=== PATIENT | female | born 1955 | race Caucasian/White ===

== ENCOUNTER 2019-08-08 17:21 | Emergency (ER) | payer MEDICARE, OTHER ==
[~2019-08-08] VITALS: Ht 154.9 cm; Wt 49.9 kg
[~2019-08-08 17:21] MED LIST: ADVAIR 250-501 EACH IH; ALBUTEROL INHAL17 GM IH; CLARITIN10 MG PO; FLONASE 0.05%50 MCG NS; K-DUR 20 MEQ T20 MEQ PO; KEFLEX500 MG PO; MEDROL DOSPAK21 TA1 PO; NEXIUM40 MG PO; NORCO 5-325 TA1 EACH PO; PROAIR HFA8.5 GM IH; PROCTOFOAM-HC F10 GM RC; XANAX XR1 MG PO; ZANTAC 150MG T150 MG; ZPAK PO
[2019-08-08] MEDS ORDERED: TORADOL 10 MG T10 MG PO (18:02)
[2019-08-08] MEDS ORDERED: NORFLEX100 MG PO (18:02)
[2019-08-08 18:31] VITALS: BP 120/74
== END 2019-08-08 18:32 | disposition home or self-care (01) ==
LOC: M.ERS 17:21
DX: G44.209 Tension-type headache, unspecified, not intractable (principal); M62.838 Other muscle spasm; K21.9 Gastro-esophageal reflux disease without esophagitis; G43.909 Migraine, unspecified, not intractable, without status migrainosus; F41.9 Anxiety disorder, unspecified; F17.210 Nicotine dependence, cigarettes, uncomplicated; Z90.49 Acquired absence of other specified parts of digestive tract; Z98.890 Other specified postprocedural states; Z88.0 Allergy status to penicillin; Z88.6 Allergy status to analgesic agent

== ENCOUNTER 2019-09-04 00:11 | Emergency (ER) | payer MEDICARE, OTHER ==
[~2019-09-04] VITALS: Ht 154.9 cm; Wt 64.0 kg
[~2019-09-04 00:11] MED LIST changes: +NORFLEX100 MG PO; +TORADOL 10 MG T10 MG PO
[2019-09-04 00:47] LABS: ABSOLUTE BASOPHILS 0.1 thou/uL (0.0-0.2); ABSOLUTE EOSINOPHILS 0.3 thou/uL (0.0-0.7); ABSOLUTE LYMPHOCYTES 3.6 thou/uL (0.8-5.3); ABSOLUTE NEUTROPHILS 3.9 thou/uL (1.6-8.1); EOSINOPHILS 3.9 %; HEMOGLOBIN 11.2 gm/dL (12.0-15.0); MCH 21.2 pg (26.0-34.0); MCV 66.3 fL (80.0-100.0); MONOCYTES 10.9 %; MPV 9.3 fl. (7.2-11.1); NUCLEATED RBCS 0 /100WBC; PLATELET COUNT* 268 thou/uL (150-400); POLYS 44.2 %; RBC 5.28 mil/uL (4.20-5.00); RDW-CV 15.2 % (10.5-14.5); WBC 8.9 thou/uL (4.0-11.0)
[2019-09-04 00:57] LABS: CALCIUM 8.5 mg/dL (8.5-10.1); CREATININE 0.8 mg/dL (0.6-1.3); POTASSIUM 3.1 mmol/L (3.5-5.1)
[2019-09-04 01:07] LABS: ALBUMIN 3.4 g/dL (3.4-5.0); MAGNESIUM 1.1 mg/dL (1.8-2.4); TOTAL BILIRUBIN 0.4 mg/dL (<0.1-1.0); TOTAL PROTEIN 6.7 g/dL (6.4-8.2)
[2019-09-04 01:23] LABS: URINE BILIRUBIN NEGATIVE (Negative); URINE BLOOD NEGATIVE (Negative); URINE CLARITY CLEAR; URINE COLOR YELLOW; URINE GLUCOSE-RANDOM NEGATIVE (Negative); URINE KETONES NEGATIVE (Negative); URINE LEUKOCYTES-REFLEX NEGATIVE (Negative); URINE NITRITE-REFLEX NEGATIVE (Negative); URINE PROTEIN NEGATIVE (Negative); URINE SPECIFIC GRAVITY <= 1.005 (1.005-1.030); URINE UROBILINOGEN 0.2 E.U./dl (0.2-1.0)
[2019-09-04] MEDS ORDERED: FLEXERIL PO (01:57)
[2019-09-04] MEDS ORDERED: INDOMETHACIN 2525 MG PO (01:57)
[2019-09-04 02:42] VITALS: BP 145/70
[2019-09-04 04:52] LABS: ANISOCYTOSIS 1+; HYPOCHROMASIA 2+; MICROCYTES 1+
--- NOTE | 2019-09-04 11:24 | EKG ---
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 : 1955 Requested By: Betsy Almendarez Order Number: [id number] MD: Roel Silverio Measurements Intervals [place] Rate: 78 P: 61 OH: 198 QRS: 32 QRSD: 91 T: 31 QT: 368 QTc: 420 Interpretive Statements Sinus rhythm Abnormal R-wave progression, early transition Compared to ECG 09/17/2012 13:54:15 No significant changes Electronically Signed On 09-04-2019 11:23:08 CDT by Roel Silverio [email or web address] <ELECTRONICALLY SIGNED> By: Roel Silverio MD, [facility] 09/04/19 1123 0016 0016 Roel Silverio MD, [facility] /EPI
== END 2019-09-04 02:42 | disposition home or self-care (01) ==
LOC: M.ERS 00:11
PROVIDERS: Emergency Medicine
DX: M25.512 Pain in left shoulder (principal); E87.6 Hypokalemia; E83.42 Hypomagnesemia; G43.909 Migraine, unspecified, not intractable, without status migrainosus; K21.9 Gastro-esophageal reflux disease without esophagitis; F17.210 Nicotine dependence, cigarettes, uncomplicated; Z88.6 Allergy status to analgesic agent; Z88.5 Allergy status to narcotic agent; Z88.0 Allergy status to penicillin; Z79.899 Other long term (current) drug therapy; Z86.73 Personal history of transient ischemic attack (TIA), and cerebral infarction without residual deficits; Z98.890 Other specified postprocedural states; Z90.49 Acquired absence of other specified parts of digestive tract

== ENCOUNTER 2019-09-17 14:57 | Emergency (ER) | payer MEDICARE, OTHER ==
[~2019-09-17] VITALS: Ht 154.9 cm; Wt 52.2 kg
[~2019-09-17 14:57] MED LIST changes: +FLEXERIL PO; +INDOMETHACIN 2525 MG PO
[2019-09-17] MEDS ORDERED: MAGNESIUM400 MG PO (15:12)
[2019-09-17 16:15] LABS: CALCIUM 9.4 mg/dL (8.5-10.1); CREATININE 0.9 mg/dL (0.6-1.3); MAGNESIUM 1.8 mg/dL (1.8-2.4); POTASSIUM 3.7 mmol/L (3.5-5.1)
[2019-09-17 16:30] VITALS: BP 144/63
== END 2019-09-17 16:31 | disposition home or self-care (01) ==
LOC: M.ERS 14:57
PROVIDERS: Emergency Medicine Emergency Medical Services
DX: J32.9 Chronic sinusitis, unspecified (principal); G43.909 Migraine, unspecified, not intractable, without status migrainosus; F41.9 Anxiety disorder, unspecified; K21.9 Gastro-esophageal reflux disease without esophagitis; E87.6 Hypokalemia; F17.210 Nicotine dependence, cigarettes, uncomplicated; Z90.49 Acquired absence of other specified parts of digestive tract; Z88.0 Allergy status to penicillin; Z88.5 Allergy status to narcotic agent; Z88.6 Allergy status to analgesic agent

== ENCOUNTER 2020-02-25 01:05 | Emergency (ER) | payer MEDICARE, OTHER ==
[~2020-02-25] VITALS: Ht 154.9 cm; Wt 65.8 kg
[~2020-02-25 01:05] MED LIST changes: +MAGNESIUM400 MG PO
[2020-02-25 02:14] LABS: URINE BILIRUBIN NEGATIVE (Negative); URINE BLOOD NEGATIVE (Negative); URINE CLARITY CLEAR; URINE COLOR YELLOW; URINE GLUCOSE-RANDOM NEGATIVE (Negative); URINE KETONES NEGATIVE (Negative); URINE LEUKOCYTES-REFLEX NEGATIVE (Negative); URINE NITRITE-REFLEX NEGATIVE (Negative); URINE PROTEIN NEGATIVE (Negative); URINE SPECIFIC GRAVITY <= 1.005 (1.005-1.030); URINE UROBILINOGEN 0.2 E.U./dl (0.2-1.0)
[2020-02-25 02:16] LABS: ABSOLUTE BASOPHILS 0.1 thou/uL (0.0-0.2); ABSOLUTE EOSINOPHILS 0.1 thou/uL (0.0-0.7); ABSOLUTE LYMPHOCYTES 2.7 thou/uL (0.8-5.3); ABSOLUTE MONOCYTES 0.6 thou/uL (0.0-1.2); ABSOLUTE NEUTROPHILS 4.7 thou/uL (1.6-8.1); BASOPHILS 1.2 %; EOSINOPHILS 1.8 %; HEMATOCRIT 36.5 % (37.0-47.0); HEMOGLOBIN 11.5 gm/dL (12.0-15.0); LYMPHOCYTES 32.6 %; MCH 20.7 pg (26.0-34.0); MCHC 31.4 g/dL (28.0-37.0); MCV 65.9 fL (80.0-100.0); MONOCYTES 7.7 %; MPV 9.1 fl. (7.2-11.1); NUCLEATED RBCS 0 /100WBC; PLATELET COUNT* 309 thou/uL (150-400); POLYS 56.7 %; RBC 5.55 mil/uL (4.20-5.00); RDW-CV 15.9 % (10.5-14.5); WBC 8.3 thou/uL (4.0-11.0)
[2020-02-25 02:20] LABS: CALCIUM 9.1 mg/dL (8.5-10.1); CREATININE 0.8 mg/dL (0.6-1.3); POTASSIUM 3.4 mmol/L (3.5-5.1)
[2020-02-25 02:22] LABS: PROTIME 9.8 Seconds (9.20-11.50)
[2020-02-25 02:24] LABS: ALBUMIN 3.8 g/dL (3.4-5.0); MAGNESIUM 1.3 mg/dL (1.8-2.4); TOTAL BILIRUBIN 0.4 mg/dL (<0.1-1.0); TOTAL PROTEIN 7.3 g/dL (6.4-8.2)
[2020-02-25 02:28] LABS: INR < 0.9
[2020-02-25 05:02] VITALS: BP 132/78
[2020-02-25 06:01] LABS: HYPOCHROMASIA 2+; MICROCYTES 3+; PLATELET ESTIMATE ADEQUATE
--- NOTE | 2020-02-25 12:49 | EKG ---
[place] [address] ELECTROCARDIOGRAM REPORT Name: MARY GALE Room: [facility]#: [id number] Admission: 02/25/20 Attend Phys: Discharge: 02/25/20 Date of : 51 Date of Service: 02/25/20 0155 Report #: [id number] THIS REPORT FOR: //name// [facility] ED Test Date: 2020-02-25 Test Time: 01:55:24 Pat Name: MARY GALE Department: Room: Gender: Home Health Specialist: [place] : 1955 Requested By: Betsy Almendarez Order Number: [id number] MD: Simone Cordoba Measurements Intervals [place] Rate: 96 P: 69 VT: 220 QRS: 32 QRSD: 86 T: 52 QT: 339 QTc: 429 Interpretive Statements Sinus rhythm Prolonged VT interval Probable left atrial enlargement Borderline T abnormalities, anterior leads Compared to ECG 09/04/2019 00:16:54 First degree AV block now present T-wave abnormality now present Electronically Signed On 02-25-2020 12:49:47 SALES INTERN by Simone Cordoba [email or web address] <ELECTRONICALLY SIGNED> By: Simone Cordoab MD, FACC 02/25/20 1249 0155 0155 Simone Cordoba MD, FAC /EPI
== END 2020-02-25 05:03 | disposition home or self-care (01) ==
LOC: M.ERS 01:05
PROVIDERS: Emergency Medicine
DX: K21.9 Gastro-esophageal reflux disease without esophagitis (principal); F41.9 Anxiety disorder, unspecified; E83.42 Hypomagnesemia; Z20.828 Contact with and (suspected) exposure to other viral communicable diseases; G43.909 Migraine, unspecified, not intractable, without status migrainosus; F17.210 Nicotine dependence, cigarettes, uncomplicated; Z88.6 Allergy status to analgesic agent; Z88.0 Allergy status to penicillin; Z88.5 Allergy status to narcotic agent; Z90.49 Acquired absence of other specified parts of digestive tract; Z98.890 Other specified postprocedural states

== ENCOUNTER 2020-05-28 10:39 | Emergency (ER) | payer MEDICARE, OTHER ==
[~2020-05-28] VITALS: Ht 154.9 cm; Wt 52.2 kg
[2020-05-28] MEDS ORDERED: MAGNESIUM250 M1 PO (10:51)
[2020-05-28 11:13] LABS: URINE BILIRUBIN NEGATIVE (Negative); URINE BLOOD TRACE (Negative); URINE CLARITY CLEAR; URINE COLOR PALE YELLOW; URINE GLUCOSE-RANDOM NEGATIVE (Negative); URINE KETONES NEGATIVE (Negative); URINE LEUKOCYTES-REFLEX NEGATIVE (Negative); URINE NITRITE-REFLEX NEGATIVE (Negative); URINE PROTEIN NEGATIVE (Negative); URINE SPECIFIC GRAVITY <= 1.005 (1.005-1.030); URINE UROBILINOGEN 0.2 E.U./dl (0.2-1.0)
[2020-05-28 11:23] LABS: ABSOLUTE BASOPHILS 0.1 thou/uL (0.0-0.2); ABSOLUTE EOSINOPHILS 0.1 thou/uL (0.0-0.7); ABSOLUTE LYMPHOCYTES 2.3 thou/uL (0.8-5.3); ABSOLUTE MONOCYTES 0.7 thou/uL (0.0-1.2); ABSOLUTE NEUTROPHILS 5.7 thou/uL (1.6-8.1); BASOPHILS 1.2 %; HEMATOCRIT 39.2 % (37.0-47.0); HEMOGLOBIN 12.3 gm/dL (12.0-15.0); LYMPHOCYTES 25.5 %; MCH 20.3 pg (26.0-34.0); MCHC 31.5 g/dL (28.0-37.0); MCV 64.5 fL (80.0-100.0); MONOCYTES 7.8 %; MPV 8.9 fl. (7.2-11.1); NUCLEATED RBCS 0 /100WBC; PLATELET COUNT* 304 thou/uL (150-400); POLYS 64.5 %; RBC 6.07 mil/uL (4.20-5.00); RDW-CV 15.8 % (10.5-14.5); WBC 8.9 thou/uL (4.0-11.0)
[2020-05-28 11:32] LABS: CALCIUM 9.2 mg/dL (8.5-10.1); CREATININE 0.8 mg/dL (0.6-1.3); POTASSIUM 3.9 mmol/L (3.5-5.1)
[2020-05-28 11:36] LABS: ALBUMIN 4.1 g/dL (3.4-5.0); MAGNESIUM 1.7 mg/dL (1.8-2.4); TOTAL BILIRUBIN 0.6 mg/dL (<0.1-1.0); TOTAL PROTEIN 7.6 g/dL (6.4-8.2)
[2020-05-28 12:21] VITALS: BP 149/64
[2020-05-28 12:29] LABS: PLATELET ESTIMATE ADEQUATE
[2020-05-28 12:30] LABS: HYPOCHROMASIA 2+; MICROCYTES 2+
[2020-05-28 12:32] LABS: TARGET CELLS Occasional
[2020-05-28 12:40] LABS: ANISOCYTOSIS 2+
[2020-05-28 12:44] LABS: OVALOCYTES 1+; POIKILOCYTOSIS 2+
== END 2020-05-28 12:21 | disposition home or self-care (01) ==
LOC: M.ERS 10:39
PROVIDERS: Nurse Practitioner Family
DX: S29.012A Strain of muscle and tendon of back wall of thorax, initial encounter (principal); R19.7 Diarrhea, unspecified; E83.42 Hypomagnesemia; G43.909 Migraine, unspecified, not intractable, without status migrainosus; K58.9 Irritable bowel syndrome, unspecified; Z90.49 Acquired absence of other specified parts of digestive tract; Z98.890 Other specified postprocedural states; X50.9XXA Other and unspecified overexertion or strenuous movements or postures, initial encounter; Y93.89 Activity, other specified; Y92.89 Other specified places as the place of occurrence of the external cause; Y99.8 Other external cause status

== ENCOUNTER 2020-11-26 19:23 | Emergency (ER) | payer MEDICARE, OTHER ==
[~2020-11-26] VITALS: Ht 154.9 cm; Wt 52.2 kg
[~2020-11-26 19:23] MED LIST changes: +MAGNESIUM250 M1 PO
[2020-11-26 22:29] LABS: CALCIUM 8.7 mg/dL (8.5-10.1); CREATININE 0.7 mg/dL (0.6-1.3); POTASSIUM 3.4 mmol/L (3.5-5.1)
[2020-11-26 22:33] LABS: ALBUMIN 3.8 g/dL (3.4-5.0); MAGNESIUM 1.4 mg/dL (1.8-2.4); TOTAL BILIRUBIN 0.3 mg/dL (<0.1-1.0); TOTAL PROTEIN 7.1 g/dL (6.4-8.2)
[2020-11-26 23:06] VITALS: BP 141/70
== END 2020-11-26 23:07 | disposition home or self-care (01) ==
LOC: M.ERS 19:23
PROVIDERS: Personal Emergency Response Attendant
DX: E83.42 Hypomagnesemia (principal); Z20.822 Contact with and (suspected) exposure to COVID-19; J02.9 Acute pharyngitis, unspecified; R09.81 Nasal congestion; J34.89 Other specified disorders of nose and nasal sinuses; R19.7 Diarrhea, unspecified; R53.1 Weakness; G43.909 Migraine, unspecified, not intractable, without status migrainosus; K21.9 Gastro-esophageal reflux disease without esophagitis; F41.9 Anxiety disorder, unspecified; F17.210 Nicotine dependence, cigarettes, uncomplicated; Z90.49 Acquired absence of other specified parts of digestive tract; Z98.890 Other specified postprocedural states; Z90.721 Acquired absence of ovaries, unilateral; Z79.899 Other long term (current) drug therapy; Z88.6 Allergy status to analgesic agent; Z88.5 Allergy status to narcotic agent; Z88.0 Allergy status to penicillin

== ENCOUNTER 2021-03-09 14:40 | Emergency (ER) | payer MEDICARE, OTHER ==
[~2021-03-09] VITALS: Ht 154.9 cm; Wt 52.2 kg
[2021-03-09] MEDS ORDERED: SERTRALINE HCL100 MG PO (15:11)
[2021-03-09 16:23] LABS: CALCIUM 8.6 mg/dL (8.5-10.1); CREATININE 0.9 mg/dL (0.6-1.3); MAGNESIUM 1.7 mg/dL (1.8-2.4); POTASSIUM 3.2 mmol/L (3.5-5.1)
[2021-03-09 16:40] VITALS: BP 143/73
== END 2021-03-09 16:41 | disposition home or self-care (01) ==
LOC: M.ERS 14:40
PROVIDERS: Emergency Medicine Emergency Medical Services
DX: E87.6 Hypokalemia (principal); G43.909 Migraine, unspecified, not intractable, without status migrainosus; K21.9 Gastro-esophageal reflux disease without esophagitis; F41.9 Anxiety disorder, unspecified; F17.210 Nicotine dependence, cigarettes, uncomplicated; Z90.49 Acquired absence of other specified parts of digestive tract; Z98.890 Other specified postprocedural states; Z90.721 Acquired absence of ovaries, unilateral; Z79.899 Other long term (current) drug therapy; Z88.6 Allergy status to analgesic agent; Z88.5 Allergy status to narcotic agent; Z88.0 Allergy status to penicillin; Z88.8 Allergy status to other drugs, medicaments and biological substances

== ENCOUNTER 2021-04-06 18:19 | Emergency (ER) | payer MEDICARE, OTHER ==
[~2021-04-06] VITALS: Ht 154.9 cm; Wt 54.4 kg
[~2021-04-06 18:19] MED LIST changes: +SERTRALINE HCL100 MG PO
[2021-04-06] MEDS ORDERED: PHENERGAN 25 MG25 MG PO (20:53)
[2021-04-06 21:47] VITALS: BP 128/54
--- NOTE | 2021-04-07 10:35 | EKG ---
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 Officer: KATI : 1955 Requested By: Kaleb England Order Number: [id number] MD: Roel Silverio Measurements Intervals [place] Rate: 106 P: 67 OH: 210 QRS: 50 QRSD: 81 T: 48 QT: 322 QTc: 428 Interpretive Statements Sinus tachycardia Borderline prolonged OH interval Borderline T abnormalities, anterior leads Baseline wander in lead(s) II,III,aVF Compared to ECG 02/25/2020 01:55:24 Sinus rhythm no longer present T-wave abnormality still present Electronically Signed On 04-07-2021 10:35:09 [facility] by Roel Silverio [email or web address] <ELECTRONICALLY SIGNED> By: Roel Silverio MD, FAC 04/07/21 1035 182 1823 Roel Silverio MD, FAC /EPI
[2021-04-07] MEDS ORDERED: TESSALON PERLE100 MG PO (15:47)
[2021-04-07] MEDS ORDERED: VENTOLIN HFA 1818 GM INH (15:47)
[2021-04-07] MEDS ORDERED: FLEXERIL PO (15:47)
[2021-04-07] MEDS ORDERED: ZOFRAN ODT4 MG PO (16:16)
== END 2021-04-06 21:48 | disposition home or self-care (01) ==
LOC: M.ERS 18:19
DX: R51.9 Headache, unspecified (principal); Z20.822 Contact with and (suspected) exposure to COVID-19; K21.9 Gastro-esophageal reflux disease without esophagitis; F41.9 Anxiety disorder, unspecified; F17.210 Nicotine dependence, cigarettes, uncomplicated; Z90.89 Acquired absence of other organs; Z90.49 Acquired absence of other specified parts of digestive tract; Z79.899 Other long term (current) drug therapy; Z88.5 Allergy status to narcotic agent; Z88.6 Allergy status to analgesic agent; Z88.0 Allergy status to penicillin

== ENCOUNTER 2021-04-07 10:36 | Emergency (ER) | payer MEDICARE, OTHER ==
[~2021-04-07] VITALS: Ht 154.9 cm; Wt 54.4 kg
[~2021-04-07 10:36] MED LIST changes: +PHENERGAN 25 MG25 MG PO
[2021-04-07 14:44] LABS: ABSOLUTE BASOPHILS 0.1 thou/uL (0.0-0.2); ABSOLUTE LYMPHOCYTES 1.6 thou/uL (0.8-5.3); ABSOLUTE MONOCYTES 0.8 thou/uL (0.0-1.2); ABSOLUTE NEUTROPHILS 2.9 thou/uL (1.6-8.1); EOSINOPHILS 0.2 %; HEMATOCRIT 37.7 % (37.0-47.0); HEMOGLOBIN 11.5 gm/dL (12.0-15.0); LYMPHOCYTES 29.9 %; MCH 19.6 pg (26.0-34.0); MCHC 30.6 g/dL (28.0-37.0); MCV 64.1 fL (80.0-100.0); MONOCYTES 14.2 %; NUCLEATED RBCS 0 /100WBC; PLATELET COUNT* 233 thou/uL (150-400); POLYS 54.7 %; RBC 5.89 mil/uL (4.20-5.00); RDW-CV 16.2 % (10.5-14.5); WBC 5.4 thou/uL (4.0-11.0)
[2021-04-07 15:03] LABS: CALCIUM 8.7 mg/dL (8.5-10.1); MAGNESIUM 1.5 mg/dL (1.8-2.4)
[2021-04-07] MEDS ORDERED: TESSALON PERLE100 MG PO (15:47)
[2021-04-07] MEDS ORDERED: FLEXERIL PO (15:47)
[2021-04-07] MEDS ORDERED: VENTOLIN HFA 1818 GM INH (15:47)
[2021-04-07 16:13] VITALS: BP 150/67
[2021-04-07] MEDS ORDERED: ZOFRAN ODT4 MG PO (16:16)
== END 2021-04-07 16:15 | disposition home or self-care (01) ==
LOC: M.ERS 10:36
PROVIDERS: Nurse Practitioner Family
DX: R05.9 Cough, unspecified (principal); Z20.822 Contact with and (suspected) exposure to COVID-19; G43.909 Migraine, unspecified, not intractable, without status migrainosus; K21.9 Gastro-esophageal reflux disease without esophagitis; F17.210 Nicotine dependence, cigarettes, uncomplicated; F41.9 Anxiety disorder, unspecified; Z90.89 Acquired absence of other organs; Z90.49 Acquired absence of other specified parts of digestive tract; Z79.899 Other long term (current) drug therapy; Z88.5 Allergy status to narcotic agent; Z88.6 Allergy status to analgesic agent; Z88.0 Allergy status to penicillin

== ENCOUNTER 2021-04-11 15:45 | Emergency (ER) | payer MEDICARE, OTHER ==
[~2021-04-11] VITALS: Ht 154.9 cm; Wt 54.4 kg
[~2021-04-11 15:45] MED LIST changes: +TESSALON PERLE100 MG PO; +VENTOLIN HFA 1818 GM INH; +ZOFRAN ODT4 MG PO
[2021-04-11] MEDS ORDERED: PROMETHAZI6.25 MG/5 PO (17:17)
[2021-04-11] MEDS ORDERED: VISTARIL 25 MG25 M1 PO (17:17)
[2021-04-11 17:30] VITALS: BP 147/69
== END 2021-04-11 17:30 | disposition home or self-care (01) ==
LOC: M.ERS 15:45
DX: U07.1 COVID-19 (principal); F41.9 Anxiety disorder, unspecified; G43.909 Migraine, unspecified, not intractable, without status migrainosus; K21.9 Gastro-esophageal reflux disease without esophagitis; F17.210 Nicotine dependence, cigarettes, uncomplicated; Z90.49 Acquired absence of other specified parts of digestive tract; Z98.890 Other specified postprocedural states; Z90.721 Acquired absence of ovaries, unilateral; Z79.899 Other long term (current) drug therapy; Z88.6 Allergy status to analgesic agent; Z88.5 Allergy status to narcotic agent; Z88.0 Allergy status to penicillin; Z88.8 Allergy status to other drugs, medicaments and biological substances

== ENCOUNTER 2021-04-18 16:50 | Emergency (ER) | payer MEDICARE, OTHER ==
[~2021-04-18] VITALS: Ht 154.9 cm; Wt 54.4 kg
[~2021-04-18 16:50] MED LIST changes: +PROMETHAZI6.25 MG/5 PO; +VISTARIL 25 MG25 M1 PO
[2021-04-18 18:30] VITALS: BP 140/80
== END 2021-04-18 18:30 | disposition home or self-care (01) ==
LOC: M.ERS 16:50
DX: M79.604 Pain in right leg (principal); G43.909 Migraine, unspecified, not intractable, without status migrainosus; K21.9 Gastro-esophageal reflux disease without esophagitis; F41.9 Anxiety disorder, unspecified; F17.210 Nicotine dependence, cigarettes, uncomplicated; Z90.49 Acquired absence of other specified parts of digestive tract; Z98.890 Other specified postprocedural states; Z90.89 Acquired absence of other organs; Z79.51 Long term (current) use of inhaled steroids; Z79.899 Other long term (current) drug therapy; Z79.891 Long term (current) use of opiate analgesic; Z88.5 Allergy status to narcotic agent; Z88.6 Allergy status to analgesic agent; Z88.0 Allergy status to penicillin; Z88.8 Allergy status to other drugs, medicaments and biological substances

== ENCOUNTER 2021-05-07 18:02 | Emergency (ER) | payer MEDICARE, OTHER ==
[~2021-05-07] VITALS: Ht 154.9 cm; Wt 55.3 kg
[2021-05-07] MEDS ORDERED: KLOR-CON M2020 MEQ PO (18:21)
[2021-05-07 19:01] LABS: ABSOLUTE BASOPHILS 0.1 thou/uL (0.0-0.2); ABSOLUTE EOSINOPHILS 0.1 thou/uL (0.0-0.7); ABSOLUTE LYMPHOCYTES 3.1 thou/uL (0.8-5.3); ABSOLUTE MONOCYTES 0.8 thou/uL (0.0-1.2); ABSOLUTE NEUTROPHILS 4.5 thou/uL (1.6-8.1); BASOPHILS 1.4 %; EOSINOPHILS 1.7 %; HEMATOCRIT 37.7 % (37.0-47.0); HEMOGLOBIN 11.8 gm/dL (12.0-15.0); LYMPHOCYTES 35.8 %; MCHC 31.3 g/dL (28.0-37.0); MONOCYTES 9.2 %; MPV 8.7 fl. (7.2-11.1); NUCLEATED RBCS 0 /100WBC; PLATELET COUNT* 303 thou/uL (150-400); POLYS 51.9 %; RBC 5.89 mil/uL (4.20-5.00); RDW-CV 16.7 % (10.5-14.5); WBC 8.7 thou/uL (4.0-11.0)
[2021-05-07 19:10] LABS: CALCIUM 9.5 mg/dL (8.5-10.1); CREATININE 0.9 mg/dL (0.6-1.3); POTASSIUM 3.8 mmol/L (3.5-5.1)
[2021-05-07 19:21] LABS: ALBUMIN 4.1 g/dL (3.4-5.0); MAGNESIUM 1.7 mg/dL (1.8-2.4); TOTAL BILIRUBIN 0.4 mg/dL (<0.1-1.0); TOTAL PROTEIN 7.7 g/dL (6.4-8.2)
[2021-05-07] MEDS ORDERED: FLEXERIL PO (20:33)
[2021-05-07 20:37] LABS: PLATELET ESTIMATE ADEQUATE
[2021-05-07 20:38] LABS: ANISOCYTOSIS 1+
[2021-05-07 20:40] LABS: POLYCHROMASIA 1+
[2021-05-07 20:41] LABS: HYPOCHROMASIA 2+; LARGE PLATELETS OCCASIONAL
[2021-05-07 20:42] LABS: MICROCYTES 2+
[2021-05-07 20:49] VITALS: BP 166/73
--- NOTE | 2021-05-08 12:55 | EKG ---
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 Operator: JAIME : 1955 Requested By: Micha Canales Order Number: [id number] MD: Roel Silverio Measurements Intervals [place] Rate: 68 P: 11 ND: 196 QRS: 35 QRSD: 86 T: 35 QT: 382 QTc: 407 Interpretive Statements Sinus rhythm Borderline T wave abnormalities Compared to ECG 04/06/2021 18:23:39 Sinus tachycardia no longer present T-wave abnormality still present Electronically Signed On 05-08-2021 12:55:37 EYELET OPERATOR by Roel Silverio [email or web address] <ELECTRONICALLY SIGNED> By: Roel Silverio MD, FAC 05/08/21 1255 1807 1807 Roel Silverio MD, [facility] /EPI
== END 2021-05-07 20:51 | disposition home or self-care (01) ==
LOC: M.ERS 18:02
PROVIDERS: Family Medicine
DX: R07.89 Other chest pain (principal); G43.909 Migraine, unspecified, not intractable, without status migrainosus; K21.9 Gastro-esophageal reflux disease without esophagitis; F41.9 Anxiety disorder, unspecified; F17.210 Nicotine dependence, cigarettes, uncomplicated; Z90.49 Acquired absence of other specified parts of digestive tract; Z98.890 Other specified postprocedural states; Z90.721 Acquired absence of ovaries, unilateral; Z79.899 Other long term (current) drug therapy; Z88.8 Allergy status to other drugs, medicaments and biological substances; Z88.5 Allergy status to narcotic agent; Z88.6 Allergy status to analgesic agent; Z88.0 Allergy status to penicillin